=== PATIENT | female | born 1975 | race Caucasian/White ===

== ENCOUNTER → 2021-03-14 12:08 | Outpatient (BNVA) | payer SELFPAY | PROVIDERS: Family Provider Family Medicine; PCP Nurse Practitioner Family; Visit Provider Nurse Practitioner Family | DX: Z79.899 Other long term (current) drug therapy (principal); Z13.6 Encounter for screening for cardiovascular disorders; E55.9 Vitamin D deficiency, unspecified; F41.8 Other specified anxiety disorders; E66.09 Other obesity due to excess calories; Z68.37 Body mass index [BMI] 37.0-37.9, adult | CPT/HCPCS: 80053; 80061; 81003; 82043; 82306; 83036; 83550; 83721; 84443; 85025 ==

== ENCOUNTER 2024-10-13 20:30 | Observation (INO) | payer OTHER, SELFPAY ==
[2024-10-13 20:34] VITALS: BP 161/89; PULSE 99; RESP 16; TEMP 36.8; O2SAT 99; BMI 36.6
[2024-10-13 20:59] LABS: Bilirubin Urine Negative (Negative); Blood Urine 2+ (Negative); Glucose Urine UA Negative (Normal); Ketones Urine Negative (Negative); Leukocyte Esterase Urine Negative (Negative); Nitrate Urine Negative (Negative); Protein Urine 3+ (Negative); Specific Gravity, Urine 1.015 (1.005-1.030); Urine Appearance Clear (CLEAR); Urine Color Yellow (Yellow); pH Urine 6.5 (5-7)
[2024-10-13 21:04] LABS: Add Urine Microscopic? YES; Bacteria Urine None Seen /hpf; Hyaline Casts Urine 0-4 /lpf; Squamous Epithelial Cell Urine 0-5 /hpf (0-5); WBC Urine 0-5 /hpf (0-5)
[2024-10-13 21:21] LABS: Add Urine Culture? Yes
[2024-10-13 23:01] LABS: Basophils # 0.1 10^3/uL (0.0-0.1); Basophils % 0.3 %; Eosinophils # 0.1 10^3/uL (0.0-0.8); Eosinophils % 0.3 %; Hematocrit 29.5 % (36-47); Lymphocytes # 1.6 10^3/uL (0.8-4.8); Lymphocytes % 9.6 %; Mean Corpuscular HGB Conc 27.8 g/dL (30-55); Mean Corpuscular Hemoglobin 19.4 pg (27-33); Mean Corpuscular Volume 69.7 fl (85-98); Mean Platelet Volume 7.9 fL (7.4-10.4); Monocytes # 0.8 10^3/uL (0.2-0.9); Monocytes % 4.8 %; Neutrophils # 13.87 10^3/uL (1.8-7.7); Neutrophils % 84.3 %; Nucleated Red Blood Cells % 0 %; Platelet Count 445 10^3/cmm (157-399); Red Blood Count 4.23 10^6/uL (3.85-5.65); White Blood Count 16.45 10^3/uL (3.29-11.43)
[2024-10-13 23:20] LABS: Alanine Aminotransferase 20 U/L (0-33); Albumin Level 4.2 g/dL (3.5-5.2); Alkaline Phosphatase 96 U/L (35-105); Anion Gap 17.1 (5-19); Aspartate Amino Transferase 15 U/L (0-32); Blood Urea Nitrogen 14 mg/dL (6-20); Calcium 9.1 mg/dL (8.5-10.5); Carbon Dioxide 23 mmol/L (22-29); Chloride 101 mmol/L (98-107); Creatinine Clr Calc Pharmacy 71.2772; Glomerular Filtration Rate 58.9 mL/min (90-130); Glucose 111 mg/dL (65-115); Magnesium 1.9 mg/dL (1.7-2.3); Osmolality Calculated 285 mOsm/kg (285-295); Potassium 4.1 mmol/L (3.5-5.1); Sodium 137 mmol/L (136-145); Total Bilirubin 0.3 mg/dL (0.15-1.2); Total Protein 7.2 g/dL (6.6-8.7)
[2024-10-14] VITALS (7 sets, daily range): BP systolic 110–169; BP diastolic 61–82; PULSE 69–91; RESP 16–18; TEMP 36.8–36.9; O2SAT 93–100; BMI 36.6
--- NOTE | 2024-10-14 00:10 | CTR_ITS ---
PROCEDURE INFORMATION: Exam: CT Abdomen And Pelvis With Contrast Exam date and time: 10/14/2024 1:16 AM Age: 49 years old Clinical indication: Abdominal tenderness; Additional info: Rlq/periumbilical pain, diarrhea for a week TECHNIQUE: Imaging protocol: Computed tomography of the abdomen and pelvis with contrast. Radiation optimization: All CT scans at this facility use at least one of these dose optimization techniques: automated exposure control; mA and/or kV adjustment per patient size (includes targeted exams where dose is matched to clinical indication); or iterative reconstruction. Contrast material: OMNI 350; Contrast volume: 100 ml; Contrast route: INTRAVENOUS (IV); COMPARISON: No relevant prior studies available. RADIATION DOSE METRICS: Total DLP (mGy-cm): 929.21 FINDINGS: Liver: Normal. No mass. Gallbladder and biliary ducts: Gallstones present. The gallbladder is contracted without gallbladder wall thickening or pericholecystic fluid. Pancreas: Normal. No ductal dilation. Spleen: Normal. No splenomegaly. Adrenal glands: Normal. No mass. Kidneys and ureters: Normal. No hydronephrosis. Stomach and bowel: Unremarkable. No obstruction. No mucosal thickening. Appendix: The appendix is dilated with surrounding inflammation compatible with acute appendicitis. No perforation or abscess. Intraperitoneal space: Unremarkable. No free air. No significant fluid collection. Vasculature: Unremarkable. No abdominal aortic aneurysm. Lymph nodes: Unremarkable. No enlarged lymph nodes. Urinary bladder: Unremarkable as visualized. Reproductive: There is a large complex cystic mass within the pelvis demonstrating mural nodularity and thin septations concerning for an ovarian neoplasm. This mass measures 19.2 x 14.7 x 15.0 cm. Small uterine fibroids noted. Bones/joints: Unremarkable. No acute fracture. Soft tissues: Unremarkable. CT/CT abdomen pelvis w con* [id number] IMPRESSION: 1. Acute appendicitis. No perforation or abscess formation. 2. Large complex cystic mass within the pelvis as detailed above concerning for an ovarian neoplasm. 3. Cholelithiasis.
--- NOTE | 2024-10-14 00:11 | ED_ITS ---
Documented by User: CALE Hewitt 10/14/24 00:18 HPI - Abdominal Pain 2 General: Chief Complaint: Abdominal Pain Stated Complaint: Pain LRAB, N/V/D Time Seen by Provider: 10/14/24 00:03 Source: patient Mode of arrival: ambulatory Limitations: no limitations History of Present Illness: MD elicited complaint: abdominal pain Pertinent past history: none Onset (ago): hour(s) Pain Consistency: constant Location: Periumbilical and RLQ Severity: moderate Pain scale (0-10): 5 Quality: stabbing (w/ mvt) and dull Exacerbating factors: movement Relieving factors: nothing Associated Symptoms: Reports diarrhea, nausea and vomiting; Denies bloating, change in stool character, chills, constipation, dysuria, fever(s) and hematochezia Related Data Home Medications ?Medication ?Instructions ?Recorded ?Confirmed citalopram 20 mg tablet 20 mg PO DAILY 03/14/2103/07 Allergies Allergy/AdvReac Type Severity Reaction Status Date / Time Opioids - Morphine Analogues Allergy vomiting Verified 03/16/24 14:00 Penicillins Allergy unknown Verified 03/16/24 14:00 Review of Systems 2 General: Reports: 10 or more systems reviewed and unremarkable except in HPI and below Const: Denies: fever(s), chills, change in appetite, change in weight or diaphoresis ENMT: Denies: throat pain or hoarseness Card: Denies: chest pain, palpitations or lightheadedness Resp: Denies: dyspnea, productive cough or wheezing GI: Reports: abdominal pain, nausea, vomiting and diarrhea; Denies: constipation, bloating, change in stool character or hematochezia : Denies: flank pain, difficulty voiding, dysuria, urinary frequency or urinary urgency Musc: Denies: neck pain or back pain Skin/Breast: Denies: rash or new lesions Neuro: Denies: headache(s) or dizziness PFSH ED 2 PFSH: Medical History Upper respiratory infection Acute bacterial sinusitis Hematuria Iron deficiency Mixed hyperlipidemia Obesity Vitamin D deficiency Hypertension screen Medication management Depression with anxiety Surgical History Status post delivery 3 c-sections last 2013 at [facility] [place] Family History Other Hypertension Social History Smoking and tobacco/nicotine status: never used tobacco/nicotine Alcohol intake: never Substance/Drug Use: never Physical Exam 2 Const: COMMON NORMALS: no acute distress, patient oriented x3, no limitations, alert and well nourished GENERAL APPEARANCE: cooperative and comfortable O RIENTATION/CONSCIOUSNESS: Yes awake HENMT: COMMON NORMALS: normocephalic, atraumatic, hearing grossly normal bilaterally, external ears normal, Normal external nose present, Normal nasal mucous membranes and turbinates present and moist oral mucous membranes HEAD & SCALP: normocephalic and atraumatic NOSE: Normal external nose present and Normal nasal mucous membranes and turbinates present EXTERNAL EAR: Yes external ears normal Eye: COMMON NORMALS: Equal, round and reactive pupils present, EOMs intact bilaterally, conjunctivae normal and normal visual telles by confrontation C ONJUNCTIVA: Yes conjunctivae normal PUPIL: Yes Equal, round and reactive pupils present Neck/C-Spine: COMMON NORMALS: full ROM, supple, no meningeal signs and no JVD Resp: COMMON NORMALS: normal respiratory effort, No retractions, No use of accessory muscles and clear to auscultation bilaterally AUSCULTATION: clear to auscultation bilaterally, no crackles, no rales, no rhonchi and no wheezes Cardio: COMMON NORMALS: no JVD, regular rate, regular rhythm, S1 normal heart sound present, S2 normal heart sound present, No gallops present (Cardio), No clicks present (Cardio), No murmurs present (Cardio), No rub (Cardio) and Peripheral pulses 2+ throughout RATE: regular rate RHYTHM: regular rhythm HEART SOUNDS: S1 normal heart sound present and S2 normal heart sound present PERIPHERAL PULSES: Peripheral pulses 2+ throughout GI: COMMON NORMALS: Soft to palpation, No hepatosplenomegaly present and no masses INSPECTION: Yes central obesity AUSCULTATION: Yes normoactive bowel sounds PALPATION: Yes Soft to palpation, Yes Tenderness to palpation present (GI) Details: RLQ, No Guarding due to palpation present (GI), No Rigid due to palpation and Yes No hepatosplenomegaly present RECTAL EXAM: deferred : COMMON NORMALS: Yes no CVA tenderness BLADDER/KIDNEY EXAM: Yes no CVA tenderness Back/Pelvis: COMMON NORMALS: no CVA tenderness Extremity: COMMON NORMALS: normal to inspection and full ROM Neuro: COMMON NORMALS: patient oriented x3, moves all extremities, no focal motor deficits and no sensory deficits noted SENSORIUM/ORIENTATION: Yes alert MENINGEAL SIGNS: Yes no meningeal signs Psych: COMMON NORMALS: mental status grossly normal, cooperative and speech normal SPEECH: Yes normal speech Skin: COMMON NORMALS: no rashes or lesions noted GENERAL SKIN EXAM: no rashes or lesions noted Course 2 Vital Signs: Vital signs: Vital Signs Temperature 98.3 F 10/13/24 20:34 Pulse Rate 83 10/14/24 00:49 Respiratory Rate 16 10/14/24 00:49 Blood Pressure 151/82 10/14/24 00:49 Pulse Oximetry 100 10/14/24 00:49 Oxygen Delivery Me thod Room Air 10/14/24 00:49 MDM - Abdominal Pain Lab Data 10/13/24 22:50 10/13/24 22:50 Labs/Radiology: Radiology Impressions Abdomen/Pelvis CT 10/14/24 00:10 IMPRESSION: 1. Acute appendicitis. No perforation or abscess formation. 2. Large complex cystic mass within the pelvis as detailed above concerning for an ovarian neoplasm. 3. Cholelithiasis. ADDENDUM: 10/14/24 0204 COMMENT: THIS REPORT CONTAINS FINDINGS THAT MAY BE CRITICAL TO PATIENT CARE. The exam findings were verbally communicated by me to Dr. Schmid via telephone conference at 2:02 AM CONE EXAMINER on 10/14/2024. The findings were acknowledged and understood. Laboratory Results WBC 16.45 10^3/uL (3.29-11.43) H 10/13/24 22:50 RBC 4.23 10^6/uL (3.85-5.65) 10/13/24 22:50 Hgb 8.20 g/dL (11.27-16.99) L 10/13/24 22:50 Hct 29.5 % (36-47) L 10/13/24 22:50 MCV 69.7 fl (85-98) L 10/13/24 22:50 MCH 19.4 pg (27-33) L 10/13/24 22:50 MCHC 27.8 g/dL (30-55) L 10/13/24 22:50 RDW 18.0 % (12.1-15.1) H 10/13/24 22:50 Plt Count 445 10^3/cmm (157-399) H 10/13/24 22:50 MPV 7.9 fL (7.4-10.4) 10/13/24 22:50 Neut % (Auto) 84.3 % 10/13/24 22:50 Lymph % (Auto) 9.6 % 10/13/24 22:50 Calvert % (Auto) 4.8 % 10/13/24 22:50 Eos % (Auto) 0.3 % 10/13/24 22:50 Baso % (Auto) 0.3 % 10/13/24 22:50 Neut # (Auto) 13.87 10^3/uL (1.8-7.7) H 10/13/24 22:50 Lymph # (Auto) 1.6 10^3/uL (0.8-4.8) 10/13/24 22:50 Calvert # (Auto) 0.8 10^3/uL (0.2-0.9) 10/13/24 22:50 Eos # (Auto) 0.1 10^3/uL (0.0-0.8) 10/13/24 22:50 Baso # (Auto) 0.1 10^3/uL (0.0-0.1) 10/13/24 22:50 Nucleated RBC % (auto) 0 % 10/13/24 22:50 Nucleated RBCs # 0.0 /100WBC 10/13/24 22:50 Sodium 137 mmol/L (136-145) 10/13/24 22:50 Potassium 4.1 mmol/L (3.5-5.1) 10/13/24 22:50 Chloride 101 mmol/L (98-107) 10/13/24 22:50 Carbon Dioxide 23 mmol/L (22-29) 10/13/24 22:50 Anion Gap 17.1 (5-19) 10/13/24 22:50 BUN 14 mg/dL (6-20) 10/13/24 22:50 Creatinine 1.0 mg/dL (0.5-0.9) H 10/13/24 22:50 GFR Calculation 58.9 mL/min (90-130) L 10/13/24 22:50 Glucose 111 mg/dL (65-115) 10/13/24 22:50 Calculated Osmolality 285 mOsm/kg (285-295) 10/13/24 22:50 Calcium 9.1 mg/dL (8.5-10.5) 10/13/24 22:50 Magnesium 1.9 mg/dL (1.7-2.3) 10/13/24 22:50 Total Bilirubin 0.3 mg/dL (0.15-1.2) 10/13/24 22:50 AST 15 U/L (0-32) 10/13/24 22:50 ALT 20 U/L (0-33) 10/13/24 22:50 Alkaline Phosphatase 96 U/L (35-105) 10/13/24 22:50 Total Protein 7.2 g/dL (6.6-8.7) 10/13/24 22:50 Albumin 4.2 g/dL (3.5-5.2) 10/13/24 22:50 Globulin 3.0 g/dL (1.3-4.6) 10/13/24 22:50 Urine Color Yellow (Yellow) 10/13/24 20:43 Urine Appearance Clear (CLEAR) 10/13/24 20:43 Urine pH 6.5 (5-7) 10/13/24 20:43 Ur Specific Mazama 1.015 (1.005-1.030) 10/13/24 20:43 Urine Protein 3+ (Negative) A 10/13/24 20:43 Urine Glucose (UA) Negative (Normal) 10/13/24 20:43 Urine Ketones Negative (Negative) 10/13/24 20:43 Urine Blood 2+ (Negative) A 10/13/24 20:43 Urine Nitrate Negative (Negative) 10/13/24 20:43 Urine Bilirubin Negative (Negative) 10/13/24 20:43 Urine Urobilinogen 1.0 mg/dL (Negative) 10/13/24 20:43 Ur Leukocyte Esterase Negative (Negative) 10/13/24 20:43 Urine RBC 11-20 /hpf (0-2) H 10/13/24 20:43 Urine WBC 0-5 /hpf (0-5) 10/13/24 20:43 Ur Squamous Epith Cells 0-5 /hpf (0-5) 10/13/24 20:43 Amorphous Sediment Not Reportable 10/13/24 20:43 Urine Bacteria None seen /hpf (NONE) 10/13/24 20:43 Hyaline Casts 0-4 /lpf H 10/13/24 20:43 Discharge Plan Discharge Patient Disposition: Admitted As Inpatient Clinical Impression: Acute appendicitis, Ovarian cystic mass Condition: Stable Prescriptions: No Action citalopram 20 mg tablet 20 mg PO DAILY Referrals: SHAYLA Dumont FNP [Primary Care Provider] - Juancarlos Feng MD [Family Provider] - Patient Instructions: Appendicitis (GEN) Print Language: Polish Coding Level of Care Code ED Benzene Operator for Chg Fwd Documented by User: Efraín Schmid DO 10/14/24 02:27 HPI - Abdominal Pain 2 General: Chief Complaint: Abdominal Pain Stated Complaint: Pain LRAB, N/V/D Time Seen by Provider: 10/14/24 00:03 History of Present Illness: Patient presents to the ER with abdominal pain nausea vomiting diarrhea. Abdominal pain is worse in the right lower quadrant. Last ate food about 5 PM yesterday, last ate a couple bites of ice about 10 PM yesterday Related Data Home Medications ?Medication ?Instructions ?Recorded ?Confirmed citalopram 20 mg tablet 20 mg PO DAILY 03/14/2103/07 Allergies Allergy/AdvReac Type Severity Reaction Status Date / Time Opioids - Morphine Analogues Allergy vomiting Verified 03/16/24 14:00 Penicillins Allergy unknown Verified 03/16/24 14:00 [facility] ED 2 [facility]: Medical History Upper respiratory infection Acute bacterial sinusitis Hematuria Iron deficiency Mixed hyperlipidemia Obesity Vitamin D deficiency Hypertension screen Medication management Depression with anxiety Surgical History Status post delivery 3 c-sections last 2013 at [facility] [place] Family History Other Hypertension Social History Smoking and tobacco/nicotine status: never used tobacco/nicotine Alcohol intake: never Substance/Drug Use: never Course 2 Vital Signs: Vital signs: Vital Signs Temperature 98.3 F 10/13/24 20:34 Pulse Rate 83 10/14/24 00:49 Respiratory Rate 16 10/14/24 00:49 Blood Pressure 151/82 10/14/24 00:49 Pulse Oximetry 100 10/14/24 00:49 Oxygen Delivery Me thod Room Air 10/14/24 00:49 MDM - Abdominal Pain Medical Decision Making White count 16.45, hemoglobin hematocrit 8.2/29.5, BUN/creatinine fourteen 1.0, urinalysis essentially negative except for 2+ blood, 11-20 red blood cells, CT scan showed acute appendicitis with also a large complex cystic mass concerning for ovarian neoplasm, these results were discussed with Dr. Tidwell and Dr. Myers we will admit the patient to Dr. Tidwell to have her appendix removed later today. Dr. Myers will follow from an DEPUTY JAILER standpoint and then will see her on an outpatient basis for further evaluation and testing before referral to PROFESSOR OF SOCIOLOGY oncology Lab Data 10/13/24 22:50 10/13/24 22:50 Labs/Radiology: Radiology Impressions Abdomen/Pelvis CT 10/14/24 00:10 IMPRESSION: 1. Acute appendicitis. No perforation or abscess formation. 2. Large complex cystic mass within the pelvis as detailed above concerning for an ovarian neoplasm. 3. Cholelithiasis. ADDENDUM: 10/14/24 0204 COMMENT: THIS REPORT CONTAINS FINDINGS THAT MAY BE CRITICAL TO PATIENT CARE. The exam findings were verbally communicated by me to Dr. Schmid via telephone conference at 2:02 AM CONE EXAMINER on 10/14/2024. The findings were acknowledged and understood. Laboratory Results WBC 16.45 10^3/uL (3.29-11.43) H 10/13/24 22:50 RBC 4.23 10^6/uL (3.85-5.65) 10/13/24 22:50 Hgb 8.20 g/dL (11.27-16.99) L 10/13/24 22:50 Hct 29.5 % (36-47) L 10/13/24 22:50 MCV 69.7 fl (85-98) L 10/13/24 22:50 MCH 19.4 pg (27-33) L 10/13/24 22:50 MCHC 27.8 g/dL (30-55) L 10/13/24 22:50 RDW 18.0 % (12.1-15.1) H 10/13/24 22:50 Plt Count 445 10^3/cmm (157-399) H 10/13/24 22:50 MPV 7.9 fL (7.4-10.4) 10/13/24 22:50 Neut % (Auto) 84.3 % 10/13/24 22:50 Lymph % (Auto) 9.6 % 10/13/24 22:50 Calvert % (Auto) 4.8 % 10/13/24 22:50 Eos % (Auto) 0.3 % 10/13/24 22:50 Baso % (Auto) 0.3 % 10/13/24 22:50 Neut # (Auto) 13.87 10^3/uL (1.8-7.7) H 10/13/24 22:50 Lymph # (Auto) 1.6 10^3/uL (0.8-4.8) 10/13/24 22:50 Calvert # (Auto) 0.8 10^3/uL (0.2-0.9) 10/13/24 22:50 Eos # (Auto) 0.1 10^3/uL (0.0-0.8) 10/13/24 22:50 Baso # (Auto) 0.1 10^3/uL (0.0-0.1) 10/13/24 22:50 Nucleated RBC % (auto) 0 % 10/13/24 22:50 Nucleated RBCs # 0.0 /100WBC 10/13/24 22:50 Sodium 137 mmol/L (136-145) 10/13/24 22:50 Potassium 4.1 mmol/L (3.5-5.1) 10/13/24 22:50 Chloride 101 mmol/L (98-107) 10/13/24 22:50 Carbon Dioxide 23 mmol/L (22-29) 10/13/24 22:50 Anion Gap 17.1 (5-19) 10/13/24 22:50 BUN 14 mg/dL (6-20) 10/13/24 22:50 Creatinine 1.0 mg/dL (0.5-0.9) H 10/13/24 22:50 GFR Calculation 58.9 mL/min (90-130) L 10/13/24 22:50 Glucose 111 mg/dL (65-115) 10/13/24 22:50 Calculated Osmolality 285 mOsm/kg (285-295) 10/13/24 22:50 Calcium 9.1 mg/dL (8.5-10.5) 10/13/24 22:50 Magnesium 1.9 mg/dL (1.7-2.3) 10/13/24 22:50 Total Bilirubin 0.3 mg/dL (0.15-1.2) 10/13/24 22:50 AST 15 U/L (0-32) 10/13/24 22:50 ALT 20 U/L (0-33) 10/13/24 22:50 Alkaline Phosphatase 96 U/L (35-105) 10/13/24 22:50 Total Protein 7.2 g/dL (6.6-8.7) 10/13/24 22:50 Albumin 4.2 g/dL (3.5-5.2) 10/13/24 22:50 Globulin 3.0 g/dL (1.3-4.6) 10/13/24 22:50 Urine Color Yellow (Yellow) 10/13/24 20:43 Urine Appearance Clear (CLEAR) 10/13/24 20:43 Urine pH 6.5 (5-7) 10/13/24 20:43 Ur Specific Mazama 1.015 (1.005-1.030) 10/13/24 20:43 Urine Protein 3+ (Negative) A 10/13/24 20:43 Urine Glucose (UA) Negative (Normal) 10/13/24 20:43 Urine Ketones Negative (Negative) 10/13/24 20:43 Urine Blood 2+ (Negative) A 10/13/24 20:43 Urine Nitrate Negative (Negative) 10/13/24 20:43 Urine Bilirubin Negative (Negative) 10/13/24 20:43 Urine Urobilinogen 1.0 mg/dL (Negative) 10/13/24 20:43 Ur Leukocyte Esterase Negative (Negative) 10/13/24 20:43 Urine RBC 11-20 /hpf (0-2) H 10/13/24 20:43 Urine WBC 0-5 /hpf (0-5) 10/13/24 20:43 Ur Squamous Epith Cells 0-5 /hpf (0-5) 10/13/24 20:43 Amorphous Sediment Not Reportable 10/13/24 20:43 Urine Bacteria None seen /hpf (NONE) 10/13/24 20:43 Hyaline Casts 0-4 /lpf H 10/13/24 20:43 All radiology interpretation(s) finalized by discharge Discharge Plan Discharge Patient Disposition: Admitted As Inpatient Clinical Impression: Acute appendicitis, Ovarian cystic mass Condition: Stable Prescriptions: No Action citalopram 20 mg tablet 20 mg PO DAILY Referrals: SHAYLA Dumont FNP [Primary Care Provider] - Juancarlos Feng MD [Family Provider] - Patient Instructions: Appendicitis (GEN) Print Language: Polish Coding Level of Care Code ED Benzene Operator for Shad Lira
[2024-10-14] MEDS: ketorolac 30 mg/mL INJ IVP ×2 (00:48→12:35)
[2024-10-14] MEDS: iohexol 350 mg/mL 500 mL Btl (per mL) IV (01:30)
[2024-10-14] MEDS: piperacillin-tazobactam 3.375 GM in sodium chloride 0.9% (plus) 50 ML IV ×2 (02:36→10:11)
[2024-10-14] MEDS: sodium chloride 0.9% 1,000 ML 100 ML IV ×2 (02:52→12:35)
[2024-10-14] MEDS: pantoprazole 40 mg SDV IVP (10:12)
[2024-10-14 11:03] LABS: CA 125 80.4 U/mL (0-35)
[2024-10-14 11:20] LABS: HCG Qualitative Urine. Negative (Negative)
[2024-10-14] MEDS: HYDROcodone-acetaminophen 5-325 mg Tablet 1 TAB PO (12:35)
[2024-10-14] MEDS: ondansetron 2 mg/ML SDV 2 mL 4 MG IVP (13:57)
--- NOTE | 2024-10-14 14:21 | P.HP_ITS ---
Providers/Chief Complaint 2 Admitting Physician: Terrence Tidwell DO Primary Care Provider: JOSE Gastelum Chief Complaint: Pain LRAB, N/V/D History of Present Illness Elissa Forte is a 49 year old female who presented to the hospital with 1 day history of right lower quadrant abdominal pain nausea and vomiting. The pain does not radiate. Nothing seems makes pain better or worse. Also, she reports that for the past greater than 2 months she has been getting bilateral lower abdominal crampy abdominal pain that radiates to her back along with heavy vaginal bleeding. A CT of the abdomen pelvis was performed and shows acute uncomplicated appendicitis and a large complex cystic pelvic mass concerning for ovarian neoplasm, as well as cholelithiasis. She denies any family history of breast or ovarian cancer. Review of Systems 2 General: Reports: 10 or more systems reviewed and unremarkable except in HPI and below Medications/Allergies Home Medications ?Medication ?Instructions ?Recorded ?Confirmed ?Last Taken ?Type citalopram 20 mg tablet 20 mg PO DAILY 03/14/2103/3110/13/24 History norethindrone acetate 5 mg tablet 5 mg PO DAILY 10/14/24 10/13/24 History Allergies Allergy/AdvReac Type Severity Reaction Status Date / Time Opioids - Morphine Analogues Allergy vomiting Verified 03/16/24 14:00 Penicillins Allergy unknown Verified 03/16/24 14:00 PFSH Acute 2 PFSH: Medical History Upper respiratory infection Acute bacterial sinusitis Hematuria Iron deficiency Mixed hyperlipidemia Obesity Vitamin D deficiency Hypertension screen Medication management Depression with anxiety Surgical History Status post delivery 3 c-sections last 2013 at [facility] [place] Family History Other Hypertension Social History Smoking and tobacco/nicotine status: never used tobacco/nicotine Alcohol intake: never Substance/Drug Use: never Vitals/I&O/Wt Last Vital Signs Temp 98.3 F 10/14/24 11:27 Pulse 86 10/14/24 11:27 Resp 18 10/14/24 11:27 BP 151/82 10/14/24 11:27 Pulse Ox 93 10/14/24 11:27 O2 Del Method Room Air 10/14/24 11:27 10/13/24 10/14/24 10/14/24 22:59 06:59 14:59 Intake Total 1021.667 / 1021.667 Output Total 50 / 50 Balance 971.667 / 971.667 Weight last 48 hrs Weight 200 lb Weight 200 lb Physical Exam 2 Narrative: General : Patient is well developed , no acute distress, oriented x3 Head : Normal cephalic, a-traumatic. Ears : Pinnae and external canal are normal. Hearing is normal. Eyes : PERRLA, Sclera and injection are normal. No conjunctival discharge. Nose : Mucous membranes are without erythema. Throat : buccal mucosa is normal, gums are without significant recession or hypertrophy. Lungs : Equal chest rise bilaterally, no use of accessory muscles, trachea is midline. Cor : Rate and rhythm are normal. Abdomen : Soft, ND, mild right lower quadrant tenderness, negative Rovsing's, no g/r/m Extremities : No edema, no cyanosis or clubbing, dorsalis pedis pulses are present bilaterally, non-tender to palpation of calves. Upper extremities are normal bilaterally. Back : non-tender to palpation, no CVA tenderness. Neuro : CN II - XII intact, Upper and lower extremities have equal and full strength Data 10/13/24 22:50 10/13/24 22:50 A&P Assessment and plan (1) Acute appendicitis: Qualifiers: Acute appendicitis type: with localized peritonitis Appendicitis abscess presence: without abscess Appendicitis gangrene presence: without gangrene Appendicitis perforation presence: without perforation Qualified Code(s): K35.30 - Acute appendicitis with localized peritonitis, without perforation or gangrene (2) Ovarian cystic mass: Qualifiers: Laterality: unspecified laterality Qualified Code(s): N83.209 - Unspecified ovarian cyst, unspecified side (3) Vaginal bleeding, abnormal: Plan Antibiotics Pain control CONVEYOR BELT REPAIRER consult [id number] She needs appendectomy. This large adjacent pelvic mass, concerning for possible ovarian neoplasm, complicates the picture. However the urgency of her appendicitis should take precedent. I will take her for laparoscopic appendectomy if we cannot get her transferred to a gynecologic oncologist I spoke with Dr. Myers, the consulting interior design principal. He would like the patient transferred and has been working on a transfer to a facility with a gynecologic oncologist. We have been unable to find quick transfer for her and she is approaching 24 hours since admission with appendicitis. Laparoscopic Appendectomy The risks and benefits of the procedure, including but not limited to, bleeding, infection, scar, numbness, pain, damage to surrounding structures, conversion to an open procedure, were explained to the patient. There is also additional risk in this case since the pelvic mass is adjacent to the appendix. It is possible that there is dissemination of malignancy throughout the abdomen, complicating the case. It is also possible that rupture of the cyst could occur during appendectomy, potentially upstaging the malignancy if present. She is understanding of the risks and wishes to proceed. PDMP PDMP Reviewed: Not Reviewed Attestations 2 Medical Necessity Statement*: Patient requires at least 1 night in the hospital for recovery after laparoscopic appendectomy for acute appendicitis. She also has a large pelvic mass for which we are attempting transfer Coding Level of Care Code Acute Code for [facility] Diagnoses Acute appendicitis K35.30 Acute appendicitis type: with localized peritonitis Appendicitis abscess presence: without abscess Appendicitis gangrene presence: without gangrene Appendicitis perforation presence: without perforation Ovarian cystic mass N83.209 Laterality: unspecified laterality Vaginal bleeding, abnormal N93.9
== END 2024-10-14 14:56 | disposition left against medical advice (07) ==
LOC: ER 10-14 02:27 → ER IP 10-14 04:40 → MEDSURG 10-14 09:07 → ER IP 10-14 16:07
PROVIDERS: Emergency Medicine; Obstetrics & Gynecology; Student in an Organized Health Care Education/Training Program; Admitting Provider Surgery; Emergency Provider Physician Assistant; Family Provider Family Medicine; PCP Nurse Practitioner Family; Visit Provider Surgery
DX: K35.30 Acute appendicitis with localized peritonitis, without perforation or gangrene (principal); N93.9 Abnormal uterine and vaginal bleeding, unspecified; E78.2 Mixed hyperlipidemia; E66.9 Obesity, unspecified; Z68.36 Body mass index [BMI] 36.0-36.9, adult; N83.209 Unspecified ovarian cyst, unspecified side; Z53.29 Procedure and treatment not carried out because of patient's decision for other reasons; Z79.899 Other long term (current) drug therapy; F41.8 Other specified anxiety disorders
CPT/HCPCS: 36415; 74177; 80053; 81001; 81025; 83735; 85025; 86304; 87086; 96365; 96366; 96375; 99285; G0378; J1885; J2405; J2470; J2543; J7030